=== PATIENT | male | born 1945 | race Caucasian/White ===

== ENCOUNTER 2022-12-30 09:47 | Inpatient (IN) | payer MEDICARE, OTHER, SELFPAY ==
[2022-12-30] VITALS (11 sets, daily range): BP systolic 114–177; BP diastolic 42–84; PULSE 32–96; RESP 15–22; TEMP 36.1–36.7; O2SAT 93–98; BMI 36.2
--- NOTE | 2022-12-30 | ECG_ITS ---
Test Reason : bradycardia Blood Pressure : / mmHG Vent. Rate : 029 BPM Atrial Rate : 277 BPM P-R Int : 000 ms QRS Dur : 122 ms QT Int : 584 ms P-R-T Axes : 083 -20 047 degrees QTc Int : 405 ms Atrial flutter with slow ventricular rate Abnormal ECG When compared with ECG of 08-JUN-2010 12:32, Atrial flutter has replaced Sinus rhythm Vent. rate has decreased BY 45 BPM Referred By: Generic ED Physician Electronically Signed By:LUIS MCGOVERN
--- NOTE | ~2022-12-30 | CT_ITS ---
EXAMINATION: CT ANGIOGRAM HEAD CT ANGIOGRAM NECK CLINICAL INFORMATION: Reason for Exam LEFT EYE VISION LOSS COMPARISON: Earlier same day noncontrast head CT TECHNIQUE: Initial noncontrast repair table operator imaging of the head and neck was performed. Comparison is made with noncontrast head CT from earlier today. Test bolus sequences followed by intravenous administration 70 mL of Omnipaque 350. Helical imaging was performed in the axial plane from the aortic arch to the skull vertex. Delayed postcontrast imaging of the head was also performed. The data was processed at the computer technologist's workstation for generation of MIP sequences. Angled MIPs and volume rendered reformatted images were also generated at an offline 3D workstation. Stenoses are assessed in accordance with NASCET criteria unless otherwise indicated. DLP: 1644 mGy-cm This CT examination was performed using dose optimization techniques as appropriate, variously including the following: *Automated exposure control. *Adjustment of mA and/or kV according to patient size (this includes techniques or standardized protocols for targeted exams where dose is matched to indication/reason for exam; i.e. extremities or head). *Use of iterative reconstruction technique. FINDINGS: CT Head: There is no evidence of acute intracranial hemorrhage or edematous territorial infarction. A few foci of hypoattenuation in the periventricular and deep white matter are consistent with mild microangiopathy. Monahan-white matter differentiation is preserved. The ventricles are normal in size and configuration. No evidence for obstructive hydrocephalus. No abnormal mass effect or midline shift. No extra-axial fluid collections. No pathologic intra-axial enhancement or regional oligemia. No acute soft tissue or osseous abnormalities. The mastoid air cells and paranasal sinuses are clear. CT Neck: Mild enlargement and heterogeneous attenuation of the thyroid gland. The remaining cervical soft tissues are within normal limits. Moderate multilevel cervical spondylosis. CT Upper Chest: The visualized lung apices are clear. Limits. Status post TAVR. Cardiomegaly. Coronary artery calcifications.. Neck CTA: Aortic Arch: Normal contour and caliber. Classic 3 vessel branching pattern of the aortic arch. Great Vessel Origins: No significant stenosis of the branch origins. Right Common Carotid Artery: No focal stenosis or occlusion. Cervical Right Internal Carotid Artery: Normal opacification without focal stenosis or occlusion. Left Common Carotid Artery: No focal stenosis or occlusion. Cervical Left Internal Carotid Artery: Normal opacification without focal stenosis or occlusion. Cervical Right Vertebral Artery: No focal stenosis or occlusion. Cervical Left Vertebral Artery: No focal stenosis or occlusion. Brain CTA: CTA of the head is somewhat technically limited secondary to extensive venous contamination. Intracranial Internal Carotid Arteries: Calcific atherosclerotic disease of the intracranial internal carotid arteries without occlusion or flow-limiting stenosis. Right Anterior Cerebral Artery: Normal A1 segment. Normal opacification of the distal STELLA segments. Left Anterior Cerebral Artery: Normal A1 segment. Normal opacification of the distal STELLA segments. Anterior Communicating Artery: Normal. Right Middle Cerebral Artery: Normal M1 segment of the MCA without focal stenosis or occlusion. Normal arborization of the distal segments. Left Middle Cerebral Artery: Normal M1 segment of the MCA without focal stenosis or occlusion. Normal arborization of the distal segments. Right Vertebral Artery: Normal V4 segment. Left Vertebral Artery: Normal V4 segment. Basilar Artery: Normal without focal stenosis or occlusion. Normal appearance of the proximal superior cerebellar arteries. Right Posterior Cerebral Artery: Normal P1 segment. Normal opacification of the distal QUALITY MANAGEMENT COORDINATOR segments. Left Posterior Cerebral Artery: Normal P1 segment. Normal opacification of the distal QUALITY MANAGEMENT COORDINATOR segments. Normal opacification of the superior sagittal, straight, transverse, and sigmoid sinuses. Focus of contrast enhancement along the body of the left caudate (series 7 image 89) likely represents a focally dilated medullary vein. CT/CT angio head neck stroke IMPRESSION: 1. No arterial high grade stenosis or large vessel occlusion in the head or neck. 2. Heterogeneous enlarged thyroid gland. Correlate with thyroid function tests and recommend further evaluation with thyroid ultrasound Impression #[address] Yap on 12/30/2022 at 12:32 PM
--- NOTE | ~2022-12-30 | CT_ITS ---
EXAMINATION: CT HEAD WITHOUT CONTRAST (STROKE PROTOCOL) CLINICAL INFORMATION: Stroke protocol. Left thigh loss of vision COMPARISON: None TECHNIQUE: Contiguous axial imaging was performed from the skull base to vertex without intravenous administration of contrast. This CT examination was performed using dose optimization techniques as appropriate, variously including the following: *Automated exposure control *Adjustment of mA and/or kV according to patient size (this includes techniques or standardized protocols for targeted exams where dose is matched to indication/reason for exam; i.e. extremities or head) *Use of iterative reconstruction technique DLP: 733 mGy-cm FINDINGS: No intracranial hemorrhage is identified. No abnormal extra-axial fluid collection is seen. No significant mass effect or midline structure shift is identified. Monahan-white matter interface is maintained. The ventricles, sulci, and cisterns appear unremarkable. No intraconal abnormality is appreciated. No carotid artery aneurysm is appreciated. Visualized paranasal sinuses and mastoid air cells appear unremarkable. CT/CT head for stroke IMPRESSION: No acute intracranial pathology. This critical result was discussed with Dr. Yap at 12:15 PM hours on December 30, 2022. It was ascertained that the content and urgency of the report was understood at the time of direct communication.
--- NOTE | ~2022-12-30 | XR_ITS ---
EXAMINATION: XR CHEST CLINICAL INFORMATION: New pacemaker COMPARISON: Chest x-ray on 12/30/2022 TECHNIQUE: Frontal view of the chest was obtained. FINDINGS: There is a left chest 2-lead cardiac device. 2 metallic circular objects appear to be overlying the mid chest. The cardiac mediastinal silhouette is stable. Prior TAVR. Mild increased pulmonary vascularity. No pleural effusions or pneumothoraces. XR/XR chest 1V IMPRESSION: 1. Mild pulmonary edema. 2. Insertion of the left chest 2-lead cardiac device. No pneumothorax.
--- NOTE | ~2022-12-30 | XR_ITS ---
EXAMINATION: XR CHEST CLINICAL INFORMATION: Pacemaker COMPARISON: December 30, 2022 TECHNIQUE: AP portable view of the chest was obtained. FINDINGS: Heart normal size. No evidence of pulmonary edema. No pneumothorax or significant pleural effusion. Dual-chamber pacemaker in place. The known TAVR is not well seen due to underpenetration. There is some minor left base atelectasis present. XR/XR chest 1V IMPRESSION: No significant acute parenchymal disease.
--- NOTE | ~2022-12-30 | XR_ITS ---
EXAMINATION: XR CHEST CLINICAL INFORMATION: Reason for Exam CHEST PAIN COMPARISON: None TECHNIQUE: One view of the chest FINDINGS: Clear lungs. No pneumothorax or pleural effusion. Normal cardiomediastinal silhouette. XR/XR chest 1V IMPRESSION: * Clear lungs.
--- NOTE | ~2022-12-30 | FL_ITS ---
EXAMINATION: XR FLUOROSCOPY WITH IMAGES CLINICAL INFORMATION: Pacemaker insertion COMPARISON: Chest x-ray on 12/30/2022 TECHNIQUE: Fluoroscopy Supervised By: Dr. Hooks. Fluoroscopy Time: 10.2 minutes. Cumulative Dose: 144 mGy. DAP: 39.3 Gycm2. Images: 9. FINDINGS: Fluoroscopy performed during pacemaker insertion. FL/FL guidance in OR IMPRESSION: Fluoroscopy provided during pacemaker insertion. Please see the operative report for additional information.
--- NOTE | 2022-12-30 11:09 | ED.EYEPROB ---
HPI - Eye Problem General Chief complaint: Eye Problems Stated complaint: lost vision in L eye, Low pulse Time Seen by Provider: 12/30/22 10:47 Source: patient Mode of arrival: ambulatory History of Present Illness HPI Narrative: THIS IS 77 YEARS OLD MAN PRESENTED TO THE EMERGENCY DEPARTMENT COMPLAINING OF LEFT EYE BLURRED VISION IN TRIAGE WAS FOUND TO BE EXTREMELY BRADYCARDIC HE DENIES SYNCOPE LIGHTHEADEDNESS chief complaint: other (LEFT EYE) Onset (ago): day(s) (1) Onset description: gradual Duration: constant Location: left eye Place: home Mechanism: none Related Data Home Medications Medication Instructions Recorded Confirmed allopurinol 300 mg tablet 300 mg PO DAILY 12/30/22 12/30/22 aspirin 81 mg tablet,delayed 81 mg PO BEDTIME 12/30/22 12/30/22 release docusate sodium 100 mg capsule 100 mg PO BEDTIME 12/30/22 12/30/22 lisinopril 10 mg tablet 10 mg PO BEDTIME 12/30/22 12/30/22 loratadine 10 mg tablet 10 mg PO DAILY 12/30/22 12/30/22 metoprolol succinate 25 mg 75 mg PO DAILY 12/30/22 12/30/22 tablet,extended release 24 hr multivitamin 1 tab PO DAILY 12/30/22 12/30/22 niacin 500 mg tablet 500 mg PO DAILY 12/30/22 12/30/22 omega 9-evh-xpm-fish oil 1,000 mg 1 cap PO DAILY 12/30/22 12/30/22 (120 mg-180 mg) capsule (Fish Oil) simvastatin 20 mg tablet 20 mg PO BEDTIME 12/30/22 12/30/22 Allergies Allergy/AdvReac Type Severity Reaction Status Date / Time No Known Allergies Allergy Unverified 07/28/20 15:06 Review of Systems Eyes: Eyes: Reports other (LEFT BLURRED VISION) [facility] Past Medical History [facility] Narrative: AVR Social History Social History Patient Tobacco Use Status: Never used Tobacco Smoked in Last 30 Days: No Advance Directives: Yes Advance Directives Information Provided: No Advance Directives on File: No Physical Exam Vital Signs: Vital Signs: Last Vital Signs Temp 98.1 F 12/30/22 15:25 Pulse 73 12/30/22 15:25 Resp 16 12/30/22 15:25 BP 114/66 12/30/22 15:25 Pulse Ox 97 12/30/22 15:25 O2 Del Method 12/30/22 15:25 BMI result Body Mass Index 36.2 Const: General: cooperative Nutritional Appearance: well nourished HEENT: Head: Yes normal to inspection Ears: hearing grossly normal bilaterally General nose exam: Normal external nose present Face and sinus: Yes normal facial exam Mouth: Normal oral and palatal mucosa present Teeth and gingiva: dentition normal Throat: Yes posterior oropharynx normal Eyes: Other: PUPILS ARE EQUAL, HIS OCULAR PRESSURE IS 8 OS, HE HAS A VISUAL FIELD IN THE NASAL FIELD Neck: Neck: Yes normal visual inspection Chest: Chest palpation & inspection: normal inspection of the chest Resp: Effort & Inspection: normal respiratory effort Cardio: Rate: bradycardic GI: Inspection: Yes normal to inspection Palpation (GI): Soft to palpation, not firm and nontender Auscultation: normal bowel sounds Skin: General skin exam: no rashes or lesions noted and elasticity normal Course Reevaluation(s) Reevaluation #1: PATIENT SEEN BY DEBONE SUPERVISOR IN THE EMERGENCY ROOM DR REZA AND DR SU, WILL NEED LIKELY PACEMAKER Time: 11:41 Reevaluation #2: ALSO DISCUSSED THE CASE WITH THE OPHTHALMOLOGY DR RAND Patient was seen also by the neurologist Dr. Castro in the emergency department Time: 11:41 Medications Administered Discontinued Medications Generic Name Dose Route Start Last Admin Trade Name Freq PRN Reason Stop Dose Admin Iohexol 100 ml 12/30/22 12:09 12/30/22 12:09 Iohexol 350 Mg/Ml 100 Ml Infus..Btl IV 12/30/22 12:10 70 ml ONCE ONE Administration Medical Decision Making Medical Decision Making [facility] Narrative: Patient presented with left blurred vision found to be with profound bradycardia, seen by Cardiology sales and leasing agent will have emergent pacemaker. Regarding his blurred vision he seems likely that he has a visual field CT in the left eye nasal field cut, CTA of the head and neck was negative Differential Diagnosis Differential Diagnoses: The differential diagnosis associated with the presentation includes CVA/WA/infarct of the retina Admission/Observation Consideration of admission/observation: Escalation of care including admission/observation considered Consult Healthcare Provider Management of the patient was discussed with: Electrician Journeyman Wireman neurologist/animal park code enforcement officer/sales and leasing agent/ophtalmologist Lab Data MDM Lab Attestation statement: I reviewed the patient's lab results. 12/30/22 11:25 Labs: Lab Results 12/30/22 12/30/22 12/30/22 Range/Units 11:25 11:25 11:25 WBC 10.1 (4.8-10.8) X10*3/uL RBC 4.38 L (4.60-5.80) X10*6/uL Hgb 13.0 L (14.0-18.0) g/dl Hct 39.7 L (42.0-52.0) % MCV 90.6 (80.0-98.0) fL MCH 29.7 (27.0-33.0) pg MCHC 32.7 (31.0-36.0) g/dl RDW 13.3 (11.0-16.0) % Plt Count 206 (160-400) X10*3/uL MPV 12.1 (9.4-12.4) fL Immature Gran % (Auto) 0.3 (0.0-0.4) % Neut % (Auto) 69.3 (45-73) % Lymph % (Auto) 16.9 L (20-40) % [place] % (Auto) 11.3 H (2-11) % Eos % (Auto) 1.5 (0-4) % Baso % (Auto) 0.7 (0-2) % Lymph # (Auto) 1.7 (1.2-4.9) X10*3/uL [place] # (Auto) 1.1 (0.1-1.2) X10*3/uL Eos # (Auto) 0.2 (0.0-0.4) X10*3/uL Baso # (Auto) 0.1 (0.0-0.2) X10*3/uL Abs Immat Gran (auto) 0.03 (0.00-0.03) X10*3/uL Absolute Neuts (auto) 7.0 (2.0-8.3) x10*3/uL Absolute Nucleated RBC 0.000 (0.0-0.012) X10*3/uL Nucleated RBC % (auto) 0.0 (0.0-0.2) /100WBC PT 14.6 H (10.0-13.1) SEC INR 1.3 H (0.9-1.1) Sodium (135-145) mmol/L Potassium (3.3-5.1) mmol/L Chloride (96-108) mmol/L Carbon Dioxide (22-29) mmol/L Anion Gap (12-20) BUN (9-16) mg/dL Creatinine (0.5-1.4) mg/dL Estim Creat Clear Calc Estimated GFR Random Glucose (60-115) mg/dL Calcium (8.4-10.2) mg/dL Total Bilirubin (0.0-1.0) mg/dL AST (5-37) U/L ALT (0-40) U/L Alkaline Phosphatase (39-117) U/L Troponin I High Sens 142.5 H* (<3.5-35.0) ng/L C-Reactive Protein (< or = 0.50) mg/dL Total Protein (6.5-8.0) g/dL Albumin (3.5-5.0) g/dL COVID-19 ([facility]) (Negative) COVID-19 Clin Com 12/30/22 12/30/22 12/30/22 Range/Units 12:29 12:57 13:00 WBC (4.8-10.8) X10*3/uL RBC (4.60-5.80) X10*6/uL Hgb (14.0-18.0) g/dl Hct (42.0-52.0) % MCV (80.0-98.0) fL MCH (27.0-33.0) pg MCHC (31.0-36.0) g/dl RDW (11.0-16.0) % Plt Count (160-400) X10*3/uL MPV (9.4-12.4) fL Immature Gran % (Auto) (0.0-0.4) % Neut % (Auto) (45-73) % Lymph % (Auto) (20-40) % [place] % (Auto) (2-11) % Eos % (Auto) (0-4) % Baso % (Auto) (0-2) % Lymph # (Auto) (1.2-4.9) X10*3/uL [place] # (Auto) (0.1-1.2) X10*3/uL Eos # (Auto) (0.0-0.4) X10*3/uL Baso # (Auto) (0.0-0.2) X10*3/uL Abs Immat Gran (auto) (0.00-0.03) X10*3/uL Absolute Neuts (auto) (2.0-8.3) x10*3/uL Absolute Nucleated RBC (0.0-0.012) X10*3/uL Nucleated RBC % (auto) (0.0-0.2) /100WBC PT (10.0-13.1) SEC INR (0.9-1.1) Sodium 135 (135-145) mmol/L Potassium 4.4 (3.3-5.1) mmol/L Chloride 109 H (96-108) mmol/L Carbon Dioxide 15 L (22-29) mmol/L Anion Gap 15 (12-20) BUN 30 H (9-16) mg/dL Creatinine 1.27 (0.5-1.4) mg/dL Estim Creat Clear Calc 65.6 Estimated GFR 55 Random Glucose 93 (60-115) mg/dL Calcium 8.5 (8.4-10.2) mg/dL Total Bilirubin 1.0 (0.0-1.0) mg/dL AST 19 (5-37) U/L ALT 14 (0-40) U/L Alkaline Phosphatase 77 (39-117) U/L Troponin I High Sens (<3.5-35.0) ng/L C-Reactive Protein 3.93 H (< or = 0.50) mg/dL Total Protein 5.8 L (6.5-8.0) g/dL Albumin 3.3 L (3.5-5.0) g/dL COVID-19 ([facility]MIAS) Negative (Negative) COVID-19 Clin Com See Note Independent Interpretation I performed an independent interpretation of an: EKG (bradycardia with rate 30) Radiology Impression Discussion of test interpretation with radiology: I have reviewed the radiologist's reading. Radiologist Impression: Basilar Artery: Normal without focal stenosis or occlusion. Normal appearance of the proximal superior cerebellar arteries. Right Posterior Cerebral Artery: Normal P1 segment. Normal opacification of the distal FILLER IN segments. Left Posterior Cerebral Artery: Normal P1 segment. Normal opacification of the distal FILLER IN segments. Normal opacification of the superior sagittal, straight, transverse, and sigmoid sinuses. Focus of contrast enhancement along the body of the left caudate (series 7 image 89) likely represents a focally dilated medullary vein. CT/CT angio head? neck stroke IMPRESSION: ? 1.? No arterial high grade stenosis or large vessel occlusion in the head or neck. ? ? 2.? Heterogeneous enlarged thyroid gland. Correlate with thyroid function tests and recommend further evaluation with thyroid ultrasound ? Impression #[address] Yap on 12/30/2022 at 12:32 PM Dictated By: Jeovany Calixto Signed By: <Electronically signed by Da Independent Historian Clinical information obtained from an independent historian. History obtained from or confirmed by: Spouse Critical Care Time Critical Care Time Critical Care Time: Yes Total Critical Care Time: 60 Attestation: Taking care of the patient/multiple customer support consultant including cardiology/sales and leasing agent/neurology/automatic pinsetter mechanic Discharge Plan Discharge Clinical Impression: Bradycardia, Blurred vision, left eye Patient Disposition: Admitted As Inpatient
[2022-12-30 11:28] LABS: MANUAL DIFF FLAG NO
[2022-12-30 11:38] LABS: Basophils Absolute Auto 0.1 X10*3/uL (0.0-0.2); Basophils Percent Auto 0.7 % (0-2); Eosinophils Absolute Auto 0.2 X10*3/uL (0.0-0.4); Eosinophils Percent Auto 1.5 % (0-4); Hematocrit 39.7 % (42.0-52.0); INTERNATIONAL NORM RATIO 1.3 (0.9-1.1); Imm Gran Abs Auto 0.03 X10*3/uL (0.00-0.03); Imm Gran Pct Auto 0.3 % (0.0-0.4); Lymphocytes Absolute Auto 1.7 X10*3/uL (1.2-4.9); Lymphocytes Percent Auto 16.9 % (20-40); Mean Corpuscular HGB Conc 32.7 g/dl (31.0-36.0); Mean Corpuscular Hemoglobin 29.7 pg (27.0-33.0); Mean Corpuscular Volume 90.6 fL (80.0-98.0); Mean Platelet Volume 12.1 fL (9.4-12.4); Monocytes Absolute Auto 1.1 X10*3/uL (0.1-1.2); Monocytes Percent Auto 11.3 % (2-11); Neutrophils Percent Auto 69.3 % (45-73); Platelet Count 206 X10*3/uL (160-400); Prothrombin Time 14.6 SEC (10.0-13.1); Red Blood Count 4.38 X10*6/uL (4.60-5.80); Red Cell Distribution Width 13.3 % (11.0-16.0); White Blood Count 10.1 X10*3/uL (4.8-10.8)
[2022-12-30 12:05] LABS: Troponin-I High Sensitivity 142.5 ng/L (<3.5-35.0)
--- NOTE | 2022-12-30 12:06 | P.CONCA_ITS ---
History of Present Illness History of Present Illness Date of Service: 12/30/22 Requesting physician: Dada Yap Chief complaint: lost vision in L eye, Low pulse Narrative: 77 male with h/o TAVR at [facility] and he f/u with Dr Yaakov Fregoso. Presenting because he woke up and could not see from left eye. He said he can see partially and has a field cut by exam. He is also noticed to be in atrial flutter with heart rate in low 30s. He has a variable block for the EKG. He was previously not on anticoagulation. Is denying any dizziness low, lightheadedness or syncope. 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 On telemetry his QRS has been noticed to be narrow and at times wide. EKG showing a white complex escape rhythm with left anterior fascicular block also present. [facility] Social History Social History Patient Tobacco Use Status: Never used Tobacco Smoked in Last 30 Days: No Advance Directives: Yes Advance Directives Information Provided: No Advance Directives on File: No Meds Allergies Allergy/AdvReac Type Severity Reaction Status Date / Time No Known Allergies Allergy Unverified 07/28/20 15:06 Physical Exam Vital Signs: Vital Signs: Last Vital Signs Temp 97.6 F 12/30/22 09:53 Pulse 38 L 12/30/22 09:53 Resp 18 12/30/22 09:53 BP 166/50 H 12/30/22 09:53 Pulse Ox 98 12/30/22 09:53 O2 Del Method 12/30/22 09:53 BMI result Body Mass Index 36.2 GENERAL APPEARANCE: in no acute distress, pleasant. NECK: no carotid bruit, no jugular venous distention. SKIN: no suspicious lesions, warm and dry. HEART: no murmurs, bradycardic. LUNGS: clear to auscultation bilaterally. ABDOMEN: soft, nontender. EXTREMITIES: no edema. PERIPHERAL PULSES: equal. NEUROLOGIC: left eye nasal field cut. Objective Labs and Meds 12/30/22 11:25 Lab results: Laboratory Results - last 24 hr 12/30/22 12/30/22 12/30/22 11:25 11:25 11:25 WBC 10.1 RBC 4.38 L Hgb 13.0 L Hct 39.7 L MCV 90.6 MCH 29.7 MCHC 32.7 RDW 13.3 Plt Count 206 MPV 12.1 Immature Gran % (Auto) 0.3 Neut % (Auto) 69.3 Lymph % (Auto) 16.9 L [place] % (Auto) 11.3 H Eos % (Auto) 1.5 Baso % (Auto) 0.7 Lymph # (Auto) 1.7 [place] # (Auto) 1.1 Eos # (Auto) 0.2 Baso # (Auto) 0.1 Abs Immat Gran (auto) 0.03 Absolute Neuts (auto) 7.0 Absolute Nucleated RBC 0.000 Nucleated RBC % (auto) 0.0 PT 14.6 H INR 1.3 H Troponin I High Sens 142.5 H* Assessment and Plan (1) Atrial flutter: Status: Acute (2) Bradycardia: Status: Acute (3) Vision loss, left eye: Status: Acute Plan 77 male with atrial flutter and bradycardia and visual loss left eye. The story is quite concerning for stroke. He is going to get further workup for that. His visual changes not due to bradycardia but is likely due to stroke or primary eye issue like recurrent detachment which ER is going to look into. From bradycardia point of view his heart rate has been stable and he has no unstable symptoms at home. Only concern is that he has wide complex escape at times and this alternates with narrow complex rhythm. His beta-pb can be held. I have spoken to Dr. Hooks to see if a pacemaker can be implanted because he will need a pacemaker given significant bradycardia. He has to be monitor closely. Please keep atropine at bedside. He will need anticoagulation for atrial flutter. Brain imaging should be performed to make sure he does not have any contraindication for anticoagulation and this should be discussed with Dr. Hooks to because if he plans to do pacemaker soon then he can get the pacemaker and then start anticoagulation. Obviously if Neurology feels that he needs urgent anticoagulation for stroke then that will take priority and we will monitor him closely for bradycardia in that case. Thank you for allowing me to participate in the care of your patient. Please feel free to contact me if you have any questions. Time Spent With Patient Time: Total time managing care of this patient today ____ minutes. Procedures Date of Service Date of Service: 12/30/22
[2022-12-30] MEDS: iohexoL 350 MG/ML 100 ML INFUS..BTL IV (12:09)
--- NOTE | 2022-12-30 12:32 | P.CONCC_ITS ---
History of Present Illness Data of Consult Service Date: 12/30/22 Requesting physician: Dada Yap Primary Care Provider: Senthil Mixon MD HPI Reason for consult: Symptomatic bradycardia 77-year-old male just under 2 years status post TAVR at which time he had high- grade AV block requiring temporary pacing and in recent months he was told of a rhythm alteration but he is not aware if it is paroxysmal or permanent where his heart rates are sometimes slow sometimes rapid up to 150 sounds like either atrial flutter or atrial fibrillation and lately he has developed increasing ex ertional fatigue and episodic lightheadedness on occasion need ear syncopal but never true syncope and then woke up this morning the last time being normal last night at 23:00 and he noticed that he definitely had a partial blindness in his left eye and it looks like it is predominantly the left nasal field has normal intra-ocular pressure and is pending a CTA of the head neck and his EKG shows at rial flutter with very high grade block sometimes narrow QRS so there may be a intermittent conduction and sometimes wide QRS clearly it is a little bit precarious Bedside echo showing normal LV and RV size and function with 75% ejection fraction and less than 2 m/sec velocity across the aortic valve replacement with no significant valvular insufficiency no segmental wall motion abnormality and he had no coronary disease on cardiac catheterization in 2020 Review of Systems Review of Systems: Yes all other systems are reviewed and are negative [facility] Social History Social History Patient Tobacco Use Status: Never used Tobacco Smoked in Last 30 Days: No Advance Directives: Yes Advance Directives Information Provided: No Advance Directives on File: No Meds Allergies Allergy/AdvReac Type Severity Reaction Status Date / Time No Known Allergies Allergy Unverified 07/28/20 15:06 Physical Exam Vital Signs: Vital Signs: Last Vital Signs Temp 97.6 F 12/30/22 09:53 Pulse 38 L 12/30/22 09:53 Resp 18 12/30/22 09:53 BP 166/50 H 12/30/22 09:53 Pulse Ox 98 12/30/22 09:53 O2 Del Method 12/30/22 09:53 BMI result Body Mass Index 36.2 Hypertensive at 166/50 with heart rate between 24 and 35 respirations just 18 and awake alert nonfocal except for the visual change Lungs clear by chest x-ray and exam Bedside echo define normal LV function Abdomen benign no organomegaly No peripheral edema Results Labs 12/30/22 11:25 Labs: Short CBC 12/30/22 Range/Units 11:25 WBC 10.1 (4.8-10.8) X10*3/uL Hgb 13.0 L (14.0-18.0) g/dl Hct 39.7 L (42.0-52.0) % Plt Count 206 (160-400) X10*3/uL Assessment and Plan (1) Sick sinus syndrome: Status: Acute (2) Symptomatic bradycardia: Status: Acute (3) Peripheral artery embolism or thrombosis: Status: Acute (4) Vision loss, left eye: Status: Acute (5) Bradycardia: Status: Acute (6) Atrial flutter: Status: Acute Plan If okayed by Neurology and Ophthalmology once the CT angiogram is interpreted given the precarious state with a wide QRS escape in rates as low as the 20s we may go straight to permanent pacing today with a blind atrial lead leaving us the potential for eventual conversion back to sinus rhythm and then following the insertion with guidance from Neurology and Ophthalmology he might need to be anticoagulated Time Spent With Patient Time: Total time managing care of this patient today _60___ minutes.
[2022-12-30 12:47] LABS: C Reactive Protein 3.93 mg/dL (< or = 0.50)
--- NOTE | 2022-12-30 12:48 | P.HPHOSP_ITS ---
History of Present Illness Date of Service: 12/30/22 Chief Complaint: Left eye blindness and aflutter with slow rate 77 male with h/o TAVR, HTN on Lisinopril and Metoprolol who woke up this morning with left blindness with no other associated symptoms, in the ED found to have aflutter with rate in 30s with variable blocks on ECG but denies dizziness, sob or syncope. He blieved he may have had Afib before but for some reason is not on anticoagulation. He has recently noted to be bradycardic and there was a plan for him to have a Holter monitor which has not yet been arranged. CT head and CT of the head and neck showed no acute pathology. Patient has been evaluated by Cardiology is planned to have a pacemaker done later today. Review of Systems Review of Systems: left eye blindness ow/ no other complaint no dizziness or syncope Yes all other systems are reviewed and are negative [facility] Social History Household Members: Spouse and Children Housing: [facility] Do you presently have visiting nurse or other home services: No Patient Tobacco Use Status: Never used Tobacco Smoked in Last 30 Days: No Use of substances other than those prescribed or required for medical reasons: No Currently Displaying Signs/Symptoms of Drug Intoxication Withdrawal: No Have you been hit, kicked, punched, or otherwise hurt by someone within the past year? If so, by whom?: No Do you feel safe in your current relationship?: Yes Is there a partner from a previous relationship who is making you feel unsafe now?: No Are you made to feel afraid or neglected: No Advance Directives: Yes Advance Directives Information Provided: No Advance Directives on File: No Advance Directives Date on File: 12/30/22 Do you have thoughts of harming others: None Do you have a plan to hurt others: No Plan Recently lost weight without trying: No Nutrition Risks: No Nutritional Risk Meds Allergies Allergy/AdvReac Type Severity Reaction Status Date / Time No Known Allergies Allergy Unverified 07/28/20 15:06 Home Medications Medication Instructions Recorded Confirmed Last Taken Type allopurinol 300 mg tablet 300 mg PO DAILY 12/30/22 12/30/22 12/30/22 History aspirin 81 mg tablet,delayed 81 mg PO BEDTIME 12/30/22 12/30/22 12/29/22 History release docusate sodium 100 mg capsule 100 mg PO BEDTIME 12/30/22 12/30/22 12/29/22 History lisinopril 10 mg tablet 10 mg PO BEDTIME 12/30/22 12/30/22 12/29/22 History loratadine 10 mg tablet 10 mg PO DAILY 12/30/22 12/30/22 12/30/22 History metoprolol succinate 25 mg 75 mg PO DAILY 12/30/22 12/30/22 12/30/22 History tablet,extended release 24 hr multivitamin 1 tab PO DAILY 12/30/22 12/30/22 12/30/22 History niacin 500 mg tablet 500 mg PO DAILY 12/30/22 12/30/22 12/30/22 History omega 7-hop-awe-fish oil 1,000 mg 1 cap PO DAILY 12/30/22 12/30/22 12/30/22 History (120 mg-180 mg) capsule (Fish Oil) simvastatin 20 mg tablet 20 mg PO BEDTIME 12/30/22 12/30/22 12/29/22 History Physical Exam Vital Signs and Narrative: Vital Signs: Last Vital Signs Temp 97.6 F 12/30/22 09:53 Pulse 38 L 12/30/22 09:53 Resp 18 12/30/22 09:53 BP 166/50 H 12/30/22 09:53 Pulse Ox 98 12/30/22 09:53 O2 Del Method 12/30/22 09:53 BMI result Body Mass Index 36.2 Const: Other: Constitutional: Alert, in no distress. Mental Status: Oriented to person, place and time. Eyes: Pupils are equal, round and reactive to light. Ear, Nose and Throat: Oropharynx clear, mucous membranes moist. Ears and nose without eformities. Respiratory: Clear to auscultation. No wheezing, rales or rhonchi. Cardiovascular: S1 S2 iregular regular. No murmurs, rubs or gallops. Gastrointestinal: Abdomen soft, non-tender, non-distended. Normal bowel sounds.? Neurologic: Cranial nerves II-XII grossly intact. No focal neurological deficits. Moves all extremities spontaneously.? Skin: No rashes or lesions.? Musculoskeletal: No cyanosis or clubbing. Psychiatric: Normal mood and affect? Results Labs 12/30/22 11:25 Labs: Laboratory Results - last 24 hr 12/30/22 12/30/22 12/30/22 11:25 11:25 11:25 MCV 90.6 MCH 29.7 MCHC 32.7 RDW 13.3 Plt Count 206 MPV 12.1 Immature Gran % (Auto) 0.3 Neut % (Auto) 69.3 Lymph % (Auto) 16.9 L [place] % (Auto) 11.3 H Eos % (Auto) 1.5 Baso % (Auto) 0.7 Lymph # (Auto) 1.7 [place] # (Auto) 1.1 Eos # (Auto) 0.2 Baso # (Auto) 0.1 Abs Immat Gran (auto) 0.03 Absolute Neuts (auto) 7.0 Absolute Nucleated RBC 0.000 Nucleated RBC % (auto) 0.0 PT 14.6 H INR 1.3 H Troponin I High Sens 142.5 H* C-Reactive Protein 12/30/22 12:29 MCV MCH MCHC RDW Plt Count MPV Immature Gran % (Auto) Neut % (Auto) Lymph % (Auto) [place] % (Auto) Eos % (Auto) Baso % (Auto) Lymph # (Auto) [place] # (Auto) Eos # (Auto) Baso # (Auto) Abs Immat Gran (auto) Absolute Neuts (auto) Absolute Nucleated RBC Nucleated RBC % (auto) PT INR Troponin I High Sens C-Reactive Protein 3.93 H Imaging Radiologist's Impressions: Impressions Chest X-Ray 12/30/22 11:15 IMPRESSION: * Clear lungs. Head CT 12/30/22 12:02 IMPRESSION: No acute intracranial pathology. This critical result was discussed with Dr. Yap at 12:15 PM hours on December 30, 2022. It was ascertained that the content and urgency of the report was understood at the time of direct communication. Assessment and Plan (1) Symptomatic bradycardia: Status: Acute (2) Sick sinus syndrome: Status: Acute (3) Vision loss, left eye: Status: Acute (4) Bradycardia: Status: Acute (5) Atrial flutter: Status: Acute Plan 77 male with h/o TAVR, HTN on Lisinopril and Metoprolol who woke up this morning with left blindness with no other associated symptoms, in the ED found to have aflutter with rate in 30s with variable blocks on ECG but denies dizziness, sob or syncope. He blieved he may have had Afib before but for some reason is not on anticoagulated. 1/Bradycardia, SSS, slow aflutter with variable blocks Stop metoprolol for pacemaker possibly later today by Dr. Hooks 2/Left eye blindness, concerning for stroke especially in lgit of aflutter -Will need anticoagulation after pace maker -May need MRI later -Neuro consult 3/Aflutter, will need permanent anticoagulation following pacemaker 4/HTN--hold Metoprolol, may resume Lisinopril tomorrow 5/ Elevated troponin I related to bradycardia, maybe echo tomorrow, cardiology recommend no further testing at this time Full code Heparin after pacemaker Need inpatient for at least 2 midnights for management of Bradycardia that needs pace maker, Left eye blindness concerning for stroke, and AFIB Time Spent With Patient Time: Total time managing care of this patient today ____ minutes. Quality Stroke Does the patient have a stroke diagnosis?: Yes Reason for No Anti-thrombotic by Day Two: N/A - Med Ordered VTE Prior VTE?: No VTE Risk Level:: Medical - moderate - high VTE Device Contraindication: Treatment Not Indicated VTE Drug Contraindication: N/A - Med Ordered
--- NOTE | 2022-12-30 13:16 | PC.NURSE ---
PT AOX4 AMB WITH STEADY GAIT REMAINS IN A FIB WITH BRADYCARDIA. ALEENA CONSULT DONE PLAN FOR PT TO GO FOR A PACER TODAY.
[2022-12-30 13:22] LABS: COVID-19 Test Negative (Negative); IDNOW Serial# 55D5AD1C
--- NOTE | 2022-12-30 13:24 | PC.NURSE ---
NEURO CONSULT BEING DONE AT THIS TIME
[2022-12-30 13:34] LABS: Alanine Aminotransferase 14 U/L (0-40); Albumin Level 3.3 g/dL (3.5-5.0); Alkaline Phosphatase 77 U/L (39-117); Anion Gap 15 (12-20); Aspartate Amino Transferase 19 U/L (5-37); Blood Urea Nitrogen 30 mg/dL (9-16); Calcium 8.5 mg/dL (8.4-10.2); Carbon Dioxide 15 mmol/L (22-29); Chloride 109 mmol/L (96-108); Creatinine Clr Calc Pharmacy 65.6; Estimated Glomerular Filt Rate 55; Glucose Random 93 mg/dL (60-115); Potassium 4.4 mmol/L (3.3-5.1); Sodium 135 mmol/L (135-145); Total Protein 5.8 g/dL (6.5-8.0)
--- NOTE | 2022-12-30 13:38 | P.CNNE_ITS ---
History of Present Illness Data of Consult Service Date: 12/30/22 Primary Care Provider: Senthil Mixon MD [facility] Reason for consult: Stroke 77 years old man with underlying history of hypertension and atrial fibrillation not anticoagulated woke up this morning and noted that he could not see well with his left eye. He covered each eye individually and right eye was okay. Baseline, he had for distant vision with right eye. There was no double vision or headache. There was no other associated symptom. This symptom has not changed since it started. There was no mental confusion. He was noted to be having atrial flutter with bradycardia in 20s to 30s. He said that at home his blood pressure at 1 time was 113 over 46. Review of Systems Review of Systems: No recent cold or flu-like illness headache or trauma. [facility] Social History Social History Patient Tobacco Use Status: Never used Tobacco Smoked in Last 30 Days: No Advance Directives: Yes Advance Directives Information Provided: No Advance Directives on File: No Meds Allergies Allergy/AdvReac Type Severity Reaction Status Date / Time No Known Allergies Allergy Unverified 07/28/20 15:06 Active Medications: Current Medications Acetaminophen (Acetaminophen 325 Mg Tablet) 650 mg PO Q6H PRN PRN Reason: Pain, Mild (Pain Scale 1-3) Sodium Chloride (0.9 % Sodium Chloride Flush 3 Ml Syringe) 3 ml IVFLUSH QSHIFT [facility] [place] Physical Exam 2 Vital Signs: Vital Signs: Last Vital Signs Temp 97.6 F 12/30/22 09:53 Pulse 32 L 12/30/22 13:15 Resp 16 12/30/22 13:15 BP 158/42 H 12/30/22 13:15 Pulse Ox 95 12/30/22 13:15 O2 Del Method 12/30/22 13:15 BMI result Body Mass Index 36.2 Neuro: Other: He is alert and awake with normal spontaneity of speech fluency comprehension and affect. Her right pupil is about 2-3 mm round reactive. Left is also about 3 mm round reactive with slight apparent pupillary defect. With right eye close his vision was blurry and he had difficulty seeing moving fingers to words nasal side. With left eye closed his vision was normal with no problem with field of vision. Extraocular muscles were intact. Face was symmetrical. Tongue was midline. There was no pronator drift. Deep tendon reflexes were absent with flexor plantars. Speech was normal. Results Labs 12/30/22 11:25 12/30/22 13:00 Labs: Short CBC 12/30/22 Range/Units 11:25 WBC 10.1 (4.8-10.8) X10*3/uL Hgb 13.0 L (14.0-18.0) g/dl Hct 39.7 L (42.0-52.0) % Plt Count 206 (160-400) X10*3/uL BMP 12/30/22 13:00 Sodium 135 Potassium 4.4 Chloride 109 H Carbon Dioxide 15 L BUN 30 H Creatinine 1.27 Calcium 8.5 Liver Function 12/30/22 Range/Units 13:00 Total Bilirubin 1.0 (0.0-1.0) mg/dL AST 19 (5-37) U/L ALT 14 (0-40) U/L Alkaline Phosphatase 77 (39-117) U/L Albumin 3.3 L (3.5-5.0) g/dL Head CT did not reveal any acute abnormality. Mild chronic microvascular ischemic changes and mild diffuse cerebral atrophy was noted. CTA of brain and neck revealed intracranial carotid atherosclerosis and calcification but othe rwise no significant abnormality or stenosis. Assessment and Plan (1) Blurred vision, left eye: Status: Acute 77 years old man who woke up with partial blindness or blurred vision in left eye. He continues to have this problem. There was mild apparent pupillary defect. He was noted to be in atrial flutter and at 1 time his blood pressure was low and he is bradycardic. 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 With underlying cardiac pathology, cerebral infarct is another possibility. He was going to have a pacemaker. Neurologically speaking, he can be treated with anti-platelet agent or anticoagulation. Because of the finding of atrial flutter, anticoagulation is recommended. He is advised to see an fisheries enforcement officer for dilated eye examination. Time Spent With Patient Time: Total time managing care of this patient today ____ minutes. Procedures Date of Service Date of Service: 12/30/22
--- NOTE | 2022-12-30 14:06 | P.CONAN_ITS ---
HPI - Anesthesia Eval Consult details Narrative: [facility] Active Problems Active Problems: All Active Problems (Updated 12/30/22 @ 13:43 by Crow Castro MD) Blurred vision, left eye (Acute) Peripheral artery embolism or thrombosis (Acute) Symptomatic bradycardia (Acute) Sick sinus syndrome (Acute) Vision loss, left eye (Acute) Bradycardia (Acute) Atrial flutter (Acute) Family History Family history of problems with anesthesia: No Surgical History History of Problems with Anesthesia: No Social History Social History Patient Tobacco Use Status: Never used Tobacco Smoked in Last 30 Days: No Advance Directives: Yes Advance Directives Information Provided: No Advance Directives on File: No Meds Allergies Allergy/AdvReac Type Severity Reaction Status Date / Time No Known Allergies Allergy Unverified 07/28/20 15:06 Active Medications: Current Medications Acetaminophen (Acetaminophen 325 Mg Tablet) 650 mg PO Q6H PRN PRN Reason: Pain, Mild (Pain Scale 1-3) Sodium Chloride (0.9 % Sodium Chloride Flush 3 Ml Syringe) 3 ml IVFLUSH [facility] Home Medications Medication Instructions Recorded Confirmed Last Taken Type allopurinol 300 mg tablet 300 mg PO DAILY 12/30/22 12/30/22 12/30/22 History aspirin 81 mg tablet,delayed 81 mg PO BEDTIME 12/30/22 12/30/22 12/29/22 History release docusate sodium 100 mg capsule 100 mg PO BEDTIME 12/30/22 12/30/22 12/29/22 History lisinopril 10 mg tablet 10 mg PO BEDTIME 12/30/22 12/30/22 12/29/22 History loratadine 10 mg tablet 10 mg PO DAILY 12/30/22 12/30/22 12/30/22 History metoprolol succinate 25 mg 75 mg PO DAILY 12/30/22 12/30/22 12/30/22 History tablet,extended release 24 hr multivitamin 1 tab PO DAILY 12/30/22 12/30/22 12/30/22 History niacin 500 mg tablet 500 mg PO DAILY 12/30/22 12/30/22 12/30/22 History omega 8-nag-zuq-fish oil 1,000 mg 1 cap PO DAILY 0212/30/22 12/30/22 History (120 mg-180 mg) capsule (Fish Oil) simvastatin 20 mg tablet 20 mg PO BEDTIME 12/30/22 12/30/22 12/29/22 History Exam Exam Date and Time: December 30, 2022 1406 Height,Weight and Vital Signs: Height 5 ft 11 in Weight 117.934 kg Last Vital Signs Temp 97.6 F 12/30/22 09:53 Pulse 32 L 12/30/22 13:15 Resp 16 12/30/22 13:15 BP 158/42 H 12/30/22 13:15 Pulse Ox 95 12/30/22 13:15 O2 Del Method 12/30/22 13:15 Pertinent Lab Results Pertinent Lab Results: Laboratory Tests 12/30/22 12/30/22 12/30/22 11:25 11:25 11:25 WBC 10.1 RBC 4.38 L Hgb 13.0 L Hct 39.7 L MCV 90.6 MCH 29.7 MCHC 32.7 RDW 13.3 Plt Count 206 MPV 12.1 Immature Gran % (Auto) 0.3 Neut % (Auto) 69.3 Lymph % (Auto) 16.9 L Callaway % (Auto) 11.3 H Eos % (Auto) 1.5 Baso % (Auto) 0.7 Lymph # (Auto) 1.7 Callaway # (Auto) 1.1 Eos # (Auto) 0.2 Baso # (Auto) 0.1 Abs Immat Gran (auto) 0.03 Absolute Neuts (auto) 7.0 Absolute Nucleated RBC 0.000 Nucleated RBC % (auto) 0.0 PT 14.6 H INR 1.3 H Sodium Potassium Chloride Carbon Dioxide Anion Gap BUN Creatinine Estim Creat Clear Calc Estimated GFR Random Glucose Calcium Total Bilirubin AST ALT Alkaline Phosphatase Troponin I High Sens 142.5 H* C-Reactive Protein Total Protein Albumin COVID-19 ([facility]) COVID-19 Clin Com 12/30/22 12/30/22 12/30/22 12:29 12:57 13:00 WBC RBC Hgb Hct MCV MCH MCHC RDW Plt Count MPV Immature Gran % (Auto) Neut % (Auto) Lymph % (Auto) Callaway % (Auto) Eos % (Auto) Baso % (Auto) Lymph # (Auto) Callaway # (Auto) Eos # (Auto) Baso # (Auto) Abs Immat Gran (auto) Absolute Neuts (auto) Absolute Nucleated RBC Nucleated RBC % (auto) PT INR Sodium 135 Potassium 4.4 Chloride 109 H Carbon Dioxide 15 L Anion Gap 15 BUN 30 H Creatinine 1.27 Estim Creat Clear Calc 65.6 Estimated GFR 55 Random Glucose 93 Calcium 8.5 Total Bilirubin 1.0 AST 19 ALT 14 Alkaline Phosphatase 77 Troponin I High Sens C-Reactive Protein 3.93 H Total Protein 5.8 L Albumin 3.3 L COVID-19 ([facility]) Negative COVID-19 Clin Com See Note Airway Mallampati Class: II TM Dist: >3cm Loose/Missing/Broken Teeth: No Heart: IRRR Lungs: CTA ; Assessment and Plan Assessment Anesthesia Assessment: Anesthesia Plan Discussed and Chart Reviewed Final Anesthetic Review Family History of Problems with Anesthesia: No History of Problems with Anesthesia: No NPO: Yes ASA Class: III and Emergency Final Preanesthetic Review: No Changes in Pt Med Stat, Meds/Allgs Chart Reviewed, Consent Obtained/Reviewed and Anes Risks/Benef Reviewed Patient Risk: High Procedure Risk: Low Anesthetic Plan Anesthetic Plan: GA Disposition: Standard PACU
--- NOTE | 2022-12-30 14:25 | PHA.MEDREC ---
Pharmacy Consult ? Medication Reconciliation Pharmacy has completed the medication reconciliation. Completed med rec with patient. He knew the names of medications and what time of day he takes them. Some doses he was unclear on but recognized them when I read from claim history.
--- NOTE | 2022-12-30 16:59 | W.PM.OPN ---
Operative Note Operative Note Date of Service: 12/30/22 Narrative: Patient presents with atrial flutter and an escape ventricular rate of 24-28 sometimes with a wide QRS making the escape rhythm the rather precarious and although he did not complain of dyspnea he definitely has had removed very recently but progressive exertional fatigue weakness and lightheadedness to the point of near syncope but no nickie syncope So he is asymptomatic bradycardia with diffuse conduction disease and possibly paroxysmal atrial flutter but in addition he had a partial visual field loss which in all likelihood is embolic and will then need to be anticoagulated and down the road in several weeks and he may need to be medicated with an attempt at conversion of his rhythm but for now he clearly needs permanent pacing and will make this a dual-chamber with a blind atrial lead So without complication he had an appetite dual-chamber pacemaker placed without complication 1st did subclavian venography demonstrating patency of the left subclavian vein and then after sterile preparation and draping made careful incision in the left subclavicular region and dissected down to the prepectoral fascia partially creating the pocket along that plane and then securing all bleeders but there was considerable tissue using probably related to his aspirin I gained separate entry x2 under fluoroscopic guidance into the subclavian vein passing retrograde with Seldinger technique to J tipped guidewires over the 1st I had a use an 8 Tristanian introducer and then an active fixation 8 Tristanian lead add down to the right ventricular apex with a screw was deployed and the lead was well tethered and at 10 volts there was no phrenic irritation and the capture threshold was superb at 0.4 volts ventricular lead impedance was 630 Ohms sensing was over 7 mV and that lead was sewn and tethered to the pectoral muscle in the floor of the pocket Then passed an active fixation 6 Tristanian atrial lead to the right atrial appendage and the screw was deployed again well tethered and at 10 volts no phrenic irritation Atrial flutter waves sensing was 2.7 mV with lead impedance 450 Ohms and that lead was sewn and tethered to the pectoral muscle in the floor of the pocket and the pocket was then completed along the plane of the prepectoral fascia and then attached both leads to the generator and lead and generator after demonstrating no change in impedance with and placed in the pocket and the wound was closed in 3 layers and sterilely dressed and because he received an additional L of fluid in the OR and had evidence of very high venous pressure I felt that he likely had some more congestive issues then he let on so I empirically gave him 1 dose of 20 mg Lasix and his postoperative chest x-ray shows excellent positioning of both leads well maintained probably some interstitial edema but no pneumothorax
[2022-12-30] MEDS: Furosemide 20 MG/2 ML VIAL IVPUSH (18:30)
[2022-12-30] MEDS: Potassium Chloride Packet 20 MEQ PACKET PO (18:31)
[2022-12-30] MEDS: 0.9 % Sodium Chloride Flush 3 ML SYRINGE IVFLUSH (18:31)
[2022-12-31 03:00] VITALS: BP 159/75; PULSE 60; RESP 16; TEMP 36.7; O2SAT 94
[2022-12-31] MEDS: Throat Lozenge, Medicated LOZENGE 1 LOZENGE MUCOUS MEM (03:26)
[2022-12-31 07:05] VITALS: BP 100/68; PULSE 62; RESP 14; TEMP 35.8; O2SAT 96
[2022-12-31 07:13] LABS: MANUAL DIFF FLAG NO
[2022-12-31 07:16] LABS: Basophils Absolute Auto 0.1 X10*3/uL (0.0-0.2); Basophils Percent Auto 0.6 % (0-2); Eosinophils Absolute Auto 0.2 X10*3/uL (0.0-0.4); Eosinophils Percent Auto 1.7 % (0-4); Hematocrit 39.2 % (42.0-52.0); Hemoglobin 13.2 g/dl (14.0-18.0); Imm Gran Abs Auto 0.04 X10*3/uL (0.00-0.03); Imm Gran Pct Auto 0.4 % (0.0-0.4); Lymphocytes Absolute Auto 1.5 X10*3/uL (1.2-4.9); Lymphocytes Percent Auto 15.3 % (20-40); Mean Corpuscular HGB Conc 33.7 g/dl (31.0-36.0); Mean Corpuscular Hemoglobin 30.3 pg (27.0-33.0); Mean Corpuscular Volume 89.9 fL (80.0-98.0); Mean Platelet Volume 12.2 fL (9.4-12.4); Monocytes Percent Auto 10.1 % (2-11); Neutrophils Absolute Auto 7.2 x10*3/uL (2.0-8.3); Neutrophils Percent Auto 71.9 % (45-73); Platelet Count 209 X10*3/uL (160-400); Red Blood Count 4.36 X10*6/uL (4.60-5.80); Red Cell Distribution Width 13.4 % (11.0-16.0)
[2022-12-31 07:21] LABS: INTERNATIONAL NORM RATIO 1.3 (0.9-1.1); Prothrombin Time 15.2 SEC (10.0-13.1)
[2022-12-31 07:24] LABS: Partial Thromboplastin Time 31.1 SEC (26.0-36.4)
[2022-12-31 07:29] VITALS: BP 159/66; PULSE 73; RESP 14; TEMP 37.2; O2SAT 95
[2022-12-31 07:38] LABS: Blood Urea Nitrogen 27 mg/dL (9-16); Calcium 9.3 mg/dL (8.4-10.2); Creatinine Clr Calc Pharmacy 61.7; Estimated Glomerular Filt Rate 52; Glucose Random 90 mg/dL (60-115); Magnesium 1.8 mg/dL (1.6-2.6)
[2022-12-31 07:51] LABS: Anion Gap 17 (12-20); Carbon Dioxide 19 mmol/L (22-29); Chloride 109 mmol/L (96-108); Potassium 4.5 mmol/L (3.3-5.1); Sodium 140 mmol/L (135-145)
[2022-12-31] MEDS: Multivitamin TABLET 1 TAB PO (08:37)
[2022-12-31] MEDS: Apixaban 5 MG TABLET PO (08:37)
[2022-12-31] MEDS: allopurinoL 300 MG TABLET PO (08:37)
[2022-12-31] MEDS: Loratadine 10 MG TABLET PO (08:38)
[2022-12-31] MEDS: lisinopriL 5 MG TABLET PO (08:39)
[2022-12-31] MEDS: Docusate Sodium 100 MG CAPSULE PO (08:39)
[2022-12-31] MEDS: 0.9 % Sodium Chloride Flush 3 ML SYRINGE IVFLUSH (08:40)
--- NOTE | 2022-12-31 10:16 | PM.DS ---
DS: Providers Provider Date of Service: 12/31/22 Date of admission: 12/30/22 13:20 Primary care physician: Senthil Mixon MD Consults: 12/30/22 12:06 Consult to Cardiology Routine Consulting Provider: Toi Whitfield Reason for consultation: bradycardia Has provider been notified: Yes 12/30/22 13:17 Consult to Neurology Stat Consulting Provider: [facility] Reason for consultation: ? cva 12/30/22 13:27 Consult to Neurology Routine Consulting Provider: [facility] Reason for consultation: left eye blindness Has provider been notified: No DS: Diagnosis Discharge Diagnosis (1) Symptomatic bradycardia: Status: Acute (2) Sick sinus syndrome: Status: Acute (3) Vision loss, left eye: Status: Acute (4) Bradycardia: Status: Acute (5) Atrial flutter: Status: Acute DS: Summary Hospital Course Hospital Course: Chief Complaint: Left eye blindness and aflutter with slow rate 77 male with h/o TAVR, HTN on Lisinopril and Metoprolol who woke up this morning with? left blindness with no other associated symptoms, in the ED found to have aflutter with rate in 30s? with variable blocks on ECG but denies dizziness, sob or syncope. He blieved he may have had Afib before but for some reason is not on anticoagulation.? He has recently noted to be bradycardic and there was a plan for him to have a Holter monitor which has not yet been arranged.? CT head and CT of the head and neck showed no acute pathology.? Patient has been evaluated by Cardiology is planned to have a pacemaker done later today. Hospital course: He presented with left eye blindnes and found to have aflutter with rate in 30s' with variable block and underwent urgent pacmaker insertion, head CT did not show acute stroke but high concern for stroke given aflutter and such is initiated ton Elquis for stroke prevent, vision is better today, will continue, stop ASA since on eliquis now continue Simvastatin mg daily. To follow up with his bond writer on outpatient basis Time Spent with Patient Time attestation: Total time managing care of this patient today ____ minutes. Discharge coordination time: Greater than 30 minutes Quality: Safe Use of Opioids Does Pt have an Active Cancer Diagnosis on the Problem List?: No Quality: Stroke Does the patient have a stroke diagnosis?: Yes Reason for No Anti-thrombotic at DC: N/A - Med Ordered Reason for No Anticoagulant at DC: N/A - Med Ordered Reason Not Initiating IV-Tpa: Contraindicated Reason for No Anti-thrombotic by Day Two: N/A - Med Ordered Reason for No Statin at DC: N/A - Med Ordered Physical Exam Vital Signs: Vital Signs: Last Vital Signs Temp 99.0 F 12/31/22 07:29 Pulse 73 12/31/22 07:29 Resp 14 12/31/22 07:29 BP 159/66 H 12/31/22 07:29 Pulse Ox 95 12/31/22 07:29 O2 Del Method 12/31/22 07:29 O2 Flow Rate 2 12/31/22 07:05 BMI result Body Mass Index 36.2 DS: Data Data Completed and Pending Labs on day of discharge: Laboratory Results - last 24 hr 12/30/22 12/30/22 12/30/22 11:25 11:25 11:25 WBC 10.1 RBC 4.38 L Hgb 13.0 L Hct 39.7 L MCV 90.6 MCH 29.7 MCHC 32.7 RDW 13.3 Plt Count 206 MPV 12.1 Immature Gran % (Auto) 0.3 Neut % (Auto) 69.3 Lymph % (Auto) 16.9 L [place] % (Auto) 11.3 H Eos % (Auto) 1.5 Baso % (Auto) 0.7 Lymph # (Auto) 1.7 [place] # (Auto) 1.1 Eos # (Auto) 0.2 Baso # (Auto) 0.1 Abs Immat Gran (auto) 0.03 Absolute Neuts (auto) 7.0 Absolute Nucleated RBC 0.000 Nucleated RBC % (auto) 0.0 PT 14.6 H INR 1.3 H APTT Sodium Potassium Chloride Carbon Dioxide Anion Gap BUN Creatinine Estim Creat Clear Calc Estimated GFR Random Glucose Calcium Magnesium Total Bilirubin AST ALT Alkaline Phosphatase Troponin I High Sens 142.5 H* C-Reactive Protein Total Protein Albumin COVID-19 ([facility]) COVID-19 Clin Com 12/30/22 12/30/22 12/30/22 12:29 12:57 13:00 WBC RBC Hgb Hct MCV MCH MCHC RDW Plt Count MPV Immature Gran % (Auto) Neut % (Auto) Lymph % (Auto) [place] % (Auto) Eos % (Auto) Baso % (Auto) Lymph # (Auto) [place] # (Auto) Eos # (Auto) Baso # (Auto) Abs Immat Gran (auto) Absolute Neuts (auto) Absolute Nucleated RBC Nucleated RBC % (auto) PT INR APTT Sodium 135 Potassium 4.4 Chloride 109 H Carbon Dioxide 15 L Anion Gap 15 BUN 30 H Creatinine 1.27 Estim Creat Clear Calc 65.6 Estimated GFR 55 Random Glucose 93 Calcium 8.5 Magnesium Total Bilirubin 1.0 AST 19 ALT 14 Alkaline Phosphatase 77 Troponin I High Sens C-Reactive Protein 3.93 H Total Protein 5.8 L Albumin 3.3 L COVID-19 ([facility]) Negative COVID-19 Clin Com See Note 12/31/22 12/31/22 12/31/22 06:43 06:43 06:43 WBC 10.0 RBC 4.36 L Hgb 13.2 L Hct 39.2 L MCV 89.9 MCH 30.3 MCHC 33.7 RDW 13.4 Plt Count 209 MPV 12.2 Immature Gran % (Auto) 0.4 Neut % (Auto) 71.9 Lymph % (Auto) 15.3 L [place] % (Auto) 10.1 Eos % (Auto) 1.7 Baso % (Auto) 0.6 Lymph # (Auto) 1.5 [place] # (Auto) 1.0 Eos # (Auto) 0.2 Baso # (Auto) 0.1 Abs Immat Gran (auto) 0.04 H Absolute Neuts (auto) 7.2 Absolute Nucleated RBC 0.000 Nucleated RBC % (auto) 0.0 PT 15.2 H INR 1.3 H APTT 31.1 Sodium 140 Potassium 4.5 Chloride 109 H Carbon Dioxide 19 L Anion Gap 17 BUN 27 H Creatinine 1.35 Estim Creat Clear Calc 61.7 Estimated GFR 52 Random Glucose 90 Calcium 9.3 D Magnesium 1.8 Total Bilirubin AST ALT Alkaline Phosphatase Troponin I High Sens C-Reactive Protein Total Protein Albumin COVID-19 ([facility]) COVID-19 Clin Com Discharge Plan Discharge Anticipated Discharge Date/Time: 12/31/22 16:01 Patient Disposition: Home, Self-Care Discharge Diagnosis: 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, aflutter with sick sinus syndrome, Referrals: Senthil Mixon MD [Primary Care Provider] - 1 Week Discharge Medications: New Eliquis 5 mg Tablet 5 mg PO BID Qty: 60 0RF Continued simvastatin 20 mg tablet 20 mg PO BEDTIME lisinopril 10 mg tablet 10 mg PO BEDTIME allopurinol 300 mg tablet 300 mg PO DAILY metoprolol succinate 25 mg tablet extended release 24 hr 75 mg PO DAILY multivitamin Tablet 1 tab PO DAILY niacin 500 mg Tablet 500 mg PO DAILY docusate sodium 100 mg Capsule 100 mg PO BEDTIME loratadine 10 mg Tablet 10 mg PO DAILY omega [id number] oil [Fish Oil] 1,000 mg (120 mg-180 mg) Capsule 1 cap PO DAILY Discontinued aspirin 81 mg Tablet,Delayed Release (Dr/Ec) 81 mg PO BEDTIME Discharge Orders: Discharge Order (Routine); Ordered 12/31/22 Ordered By: Warren Rhodes Diet: Advance to usual diet Activity on Discharge: As tolerated Stand Alone Forms: Patient Portal Discharge page Care Plan Goals: Full recovery from stroke and Slow heart rate Health Concerns: Left eye blindness Atrial flutter Bradycardia (slow heart rate ) Plan of Treatment: Stop taking aspiring Take Elquis (blood thiner) to prevent stroke Follow up with your heart docotor in 1 to 2 weeks Follow up with your primary care doctor in a week Pace maker instruction: You should not touch or wet the wound for 2 weeks; you can wash your face and hair in the sink; you can rinse off your body in the shower as long as it is below the level of the pacemaker. You should not stretch out your left arm to the extreme to reach for things away from the body for 4 weeks; you can otherwise perform normal tasks, even driving. You should follow up with the Cardiology office in 2 weeks for the dressing removal (Dr. Whitfield's office) Assessment: as above Patient Instructions: Apixaban (By mouth)
--- NOTE | 2022-12-31 10:17 | PM.PNCARD ---
Subjective Subjective Date of Service: 12/31/22 Interval history: He states that he feels fine. No new cardiac concerns. Review of Systems Review of Systems Yes all other systems are reviewed and are negative Constitutional: Reports as per HPI Eyes: Reports as per HPI Reports as per HPI Cardiovascular: Reports as per HPI, Denies acrocyanosis, Denies cool extremities, Denies chest pain, Denies leg edema, Denies lightheadedness, Denies palpitations and Denies dyspnea Respiratory: Reports as per HPI, Reports no additional respiratory complaints and Denies dyspnea Gastrointestinal: Reports as per HPI and Reports no additional gastrointestinal complaints Genitourinary: Reports no additional male genitourinary complaints and Reports as per HPI Musculoskeletal: Reports no additional musculoskeletal complaints and Reports as per HPI Skin/Breast: Reports system reviewed and no additional complaints, except as docu Reports system reviewed and no additional complaints, except as documented and Reports as per HPI Psychiatric: Reports no additional psychiatric complaints and Reports as per HPI Endocrine: Reports no additional endocrine complaints, Reports as per HPI and Denies palpitations Hematologic/Lymphatic: Reports no additional hematologic/lymphatic complaints and Reports as per HPI Allergic/Immunologic: Reports no additional allergic/immunologic complaints and Reports as per HPI Physical Exam Vital Signs: Last Vital Signs Temp 99.0 F 12/31/22 07:29 Pulse 73 12/31/22 07:29 Resp 14 12/31/22 07:29 BP 159/66 H 12/31/22 07:29 Pulse Ox 95 12/31/22 07:29 O2 Del Method 12/31/22 07:29 O2 Flow Rate 2 12/31/22 07:05 BMI result Body Mass Index 36.2 Const General: comfortable and no acute distress Orientation/consciousness: patient oriented x3 HEENT Other: Unremarkable Head: Yes normal to inspection Neck Neck: Yes normal visual inspection Chest Chest palpation & inspection: normal inspection of the chest Resp Auscultation: clear to auscultation bilaterally Cardio Palpation: normal PMI Heart sounds: S1 normal heart sound present, S2 normal heart sound present, no gallops, Murmur heart sound present systolic II/ and at the right sternal border and no rubs GI Palpation (GI): Soft to palpation Back/Spine/Pelvis Other: unremarkable Skin General skin exam: no rashes or lesions noted Neuro General: patient oriented x3 Extrem General: Yes normal to inspection Psych Mental Status: mental status grossly normal Objective Labs and Meds 12/31/22 06:43 12/31/22 06:43 Lab results: Laboratory Results - last 24 hr 12/30/22 12/30/22 12/30/22 11:25 11:25 11:25 WBC 10.1 RBC 4.38 L Hgb 13.0 L Hct 39.7 L MCV 90.6 MCH 29.7 MCHC 32.7 RDW 13.3 Plt Count 206 MPV 12.1 Immature Gran % (Auto) 0.3 Neut % (Auto) 69.3 Lymph % (Auto) 16.9 L [place] % (Auto) 11.3 H Eos % (Auto) 1.5 Baso % (Auto) 0.7 Lymph # (Auto) 1.7 [place] # (Auto) 1.1 Eos # (Auto) 0.2 Baso # (Auto) 0.1 Abs Immat Gran (auto) 0.03 Absolute Neuts (auto) 7.0 Absolute Nucleated RBC 0.000 Nucleated RBC % (auto) 0.0 PT 14.6 H INR 1.3 H APTT Sodium Potassium Chloride Carbon Dioxide Anion Gap BUN Creatinine Estim Creat Clear Calc Estimated GFR Random Glucose Calcium Magnesium Total Bilirubin AST ALT Alkaline Phosphatase Troponin I High Sens 142.5 H* C-Reactive Protein Total Protein Albumin COVID-19 ([facility]) COVID-19 Posterous 12/30/22 12/30/22 12/30/22 12:29 12:57 13:00 WBC RBC Hgb Hct MCV MCH MCHC RDW Plt Count MPV Immature Gran % (Auto) Neut % (Auto) Lymph % (Auto) [place] % (Auto) Eos % (Auto) Baso % (Auto) Lymph # (Auto) [place] # (Auto) Eos # (Auto) Baso # (Auto) Abs Immat Gran (auto) Absolute Neuts (auto) Absolute Nucleated RBC Nucleated RBC % (auto) PT INR APTT Sodium 135 Potassium 4.4 Chloride 109 H Carbon Dioxide 15 L Anion Gap 15 BUN 30 H Creatinine 1.27 Estim Creat Clear Calc 65.6 Estimated GFR 55 Random Glucose 93 Calcium 8.5 Magnesium Total Bilirubin 1.0 AST 19 ALT 14 Alkaline Phosphatase 77 Troponin I High Sens C-Reactive Protein 3.93 H Total Protein 5.8 L Albumin 3.3 L COVID-19 ([facility]) Negative COVID-19 Relayr Com See Note 12/31/22 12/31/22 12/31/22 06:43 06:43 06:43 WBC 10.0 RBC 4.36 L Hgb 13.2 L Hct 39.2 L MCV 89.9 MCH 30.3 MCHC 33.7 RDW 13.4 Plt Count 209 MPV 12.2 Immature Gran % (Auto) 0.4 Neut % (Auto) 71.9 Lymph % (Auto) 15.3 L [place] % (Auto) 10.1 Eos % (Auto) 1.7 Baso % (Auto) 0.6 Lymph # (Auto) 1.5 [place] # (Auto) 1.0 Eos # (Auto) 0.2 Baso # (Auto) 0.1 Abs Immat Gran (auto) 0.04 H Absolute Neuts (auto) 7.2 Absolute Nucleated RBC 0.000 Nucleated RBC % (auto) 0.0 PT 15.2 H INR 1.3 H APTT 31.1 Sodium 140 Potassium 4.5 Chloride 109 H Carbon Dioxide 19 L Anion Gap 17 BUN 27 H Creatinine 1.35 Estim Creat Clear Calc 61.7 Estimated GFR 52 Random Glucose 90 Calcium 9.3 D Magnesium 1.8 Total Bilirubin AST ALT Alkaline Phosphatase Troponin I High Sens C-Reactive Protein Total Protein Albumin COVID-19 ([facility]) COVID-19 Clin Com Imaging Radiologist's impression: Impressions Chest X-Ray 12/30/22 11:15 IMPRESSION: * Clear lungs. Head CT 12/30/22 12:02 IMPRESSION: No acute intracranial pathology. This critical result was discussed with Dr. Yap at 12:15 PM hours on December 30, 2022. It was ascertained that the content and urgency of the report was understood at the time of direct communication. Head/Neck CTA 12/30/22 12:13 IMPRESSION: 1. No arterial high grade stenosis or large vessel occlusion in the head or neck. 2. Heterogeneous enlarged thyroid gland. Correlate with thyroid function tests and recommend further evaluation with thyroid ultrasound Impression #[address] Yap on 12/30/2022 at 12:32 PM Guidance Fluoroscopy 12/30/22 16:15 IMPRESSION: Fluoroscopy provided during pacemaker insertion. Please see the operative report for additional information. Chest X-Ray 12/30/22 17:05 IMPRESSION: 1. Mild pulmonary edema. 2. Insertion of the left chest 2-lead cardiac device. No pneumothorax. Chest X-Ray 12/31/22 07:15 IMPRESSION: No significant acute parenchymal disease. Progress Note: A&P Assessment and plan (1) Symptomatic bradycardia: Status: Acute (2) Atrial flutter: Status: Acute (3) Peripheral artery embolism or thrombosis: Status: Acute (4) Blurred vision, left eye: Status: Acute Plan Presented with atrial flutter and slow ventricular rate. Status post permanent pacemaker implantation. Once cleared by Dr. Hooks with regard to pacemaker, discharge planning. Anticoagulation. May hold aspirin. Continue other medications. Follow-up with his own deputy sheriff bailiff at [facility]. Total time spent including review of hospitalization records, evaluation of patient, discussion with hospitalist, documentation, coordination of care-45 minutes. Message sent to his deputy sheriff bailiff/PCP at [facility]. Time Spent With Patient Time: Total time managing care of this patient today ____ minutes. Progress Note: Quality Stroke Does the patient have a stroke diagnosis?: Yes Reason for No Anti-thrombotic by Day Two: N/A - Med Ordered Procedures Date of Service Date of Service: 12/31/22
[2022-12-31 11:05] VITALS: BP 144/66; PULSE 96; RESP 16; TEMP 36.7; O2SAT 92
--- NOTE | 2022-12-31 11:16 | MHC.STROKE ---
12/30/22 6125 WALK-IN, C/O LEFT VISUAL EYE FIELD CUT, ONSET DAY PRIOR, NIHSS = 1, VERIFIED THAT HE PASSED SWALLOW SCREEN, STROKE PROTOCOL ACTIVATED CT AND CTA H/N, NO BLEED. BRADYCARDIA NOTED, SEEN BY DR. JUAN FRANCISCO PATTON 1330 AND HE EXPLAINED STROKE RISKS AND EDUCATED PATIENT. HE HAD A PACEMAKER DONE. I WILL FOLLOW NEEDED.
--- NOTE | 2022-12-31 12:13 | MHC.CM.PN ---
dc plan home no servceis pt lives with family
[2022-12-31 15:20] VITALS: BP 138/61; PULSE 60; RESP 19; TEMP 36.9; O2SAT 93
== END 2022-12-31 16:47 | disposition home or self-care (01) | DRG 243 ==
LOC: HO.ED 13:25 → HO.EDOVER 13:31 → HO.IMC 14:49
PROVIDERS: Internal Medicine Cardiovascular Disease; Admitting Provider Internal Medicine; Emergency Provider Emergency Medicine; PCP Family Medicine; Visit Provider Internal Medicine
PROC: 0JH606Z Insertion of Pacemaker, Dual Chamber into Chest Subcutaneous Tissue and Fascia, Open Approach (ICD-10-PCS; principal; 2022-12-30 14:00)
DX: I49.5 Sick sinus syndrome (principal); I48.92 Unspecified atrial flutter; I10 Essential (primary) hypertension; H54.62 Unqualified visual loss, left eye, normal vision right eye; Z20.822 Contact with and (suspected) exposure to COVID-19; Z95.2 Presence of prosthetic heart valve; Z79.899 Other long term (current) drug therapy
CPT/HCPCS: 36415; 70450; 70496; 70498; 71045; 80048; 80053; 83735; 84484; 85025; 85610; 85730; 86140; 87635; 93005; 99284; C1785; C1892; C1898; J0690; J1940; J2370; J2405; J3010; J3370; Q9965; Q9967